=== PATIENT | female | born 1960 | race Caucasian/White ===

== ENCOUNTER 2019-06-02 11:57 | Emergency (ER) | payer MEDICAID ==
[~2019-06-02] VITALS: Ht 157.5 cm; Wt 69.9 kg
[2019-06-02 12:04] VITALS: Ht 157.5 cm; Wt 69.9 kg
[2019-06-02 14:36] VITALS: BP 148/93
== END 2019-06-02 14:37 | disposition home or self-care (01) ==
LOC: ED 11:57
DX: J06.9 Acute upper respiratory infection, unspecified (principal); I10 Essential (primary) hypertension; E11.9 Type 2 diabetes mellitus without complications; E78.00 Pure hypercholesterolemia, unspecified
CPT/HCPCS: Q0092